=== PATIENT | female | born 1995 | race Two or more races ===

== ENCOUNTER 2024-01-13 03:32 | Emergency (ER) | payer OTHER ==
[~2024-01-13] VITALS: Ht 165.1 cm; Wt 79.4 kg
[2024-01-13] MEDS ORDERED: KETOROLAC TROMETHAMINE 60 MG VIAL IM STA (05:22)
[2024-01-13] MEDS ORDERED: ORPHENADRINE CITRATE 30 MG/ML AMPUL IM STA (05:22)
== END 2024-01-13 05:29 | disposition home or self-care (01) ==
LOC: ER 03:33
DX: M62.830 Muscle spasm of back (principal)